=== PATIENT | male | born 1975 | race African-American/Black ===

== ENCOUNTER 2025-07-03 12:06 | Emergency (ER) | payer OTHER ==
[~2025-07-03] VITALS: Ht 162.6 cm; Wt 81.0 kg
[2025-07-03 12:23] VITALS: TEMP 98.1
[2025-07-03 14:34] LABS: APPEARANCE,URINE CLEAR (CLEAR); GLUCOSE, URINE (UA) NEGATIVE (NEGATIVE); LEUKOCYTE ESTERASE ,URINE NEGATIVE (NEGATIVE); NITRATE,URINE NEGATIVE (NEGATIVE); OCCULT BLOOD,URINE NEGATIVE (NEGATIVE); PH,URINE DRUG SCREEN 5.5 (5.0-8.0); SPECIFIC GRAVITIY, URINE 1.005 (1.003-1.030)
[2025-07-03 14:36] LABS: PLATELET COUNT (AUTO) 194 K/uL (150-450); RED BLOOD CELL COUNT(AUTO) 3.99 MIL/uL (4.50-5.90); RED CELL DISTRIBUTION WIDTH 14.1 % (11.5-14.5); WHITE BLOOD COUNT (AUTO) 6.0 K/uL (4.5-11.0)
[2025-07-03 14:41] LABS: CALCIUM, TOTAL 9.1 mg/dL (8.8-10.5); CREATININE 0.84 mg/dL (0.60-1.30); GLOMERULAR FILTR. RATE CALC > 60 mL/min (>60); GLUCOSE,RANDOM 141 mg/dL (70-110); SODIUM SERUM 136 mmol/L (136-145); UREA NITROGEN, BLOOD 8 mg/dL (7-18)
[2025-07-03 14:43] LABS: ALCOHOL, URINE DRUG SCREEN NEGATIVE (NEGATIVE); AMPHET/METH SCREEN,URINE NEGATIVE (NEGATIVE); BARBITURATE SCREEN, URINE NEGATIVE (NEGATIVE); CANNABINOID SCREEN,URINE NEGATIVE (NEGATIVE); METHADONE SCREEN, URINE NEGATIVE (NEGATIVE)
[2025-07-03 14:48] LABS: TROPONIN I-HIGH SENSITIVITY 9 ng/L (<76)
[2025-07-03 14:57] LABS: COCAINE SCREEN,URINE NEGATIVE (NEGATIVE)
[2025-07-03 15:51] VITALS: BP 147/97; PULSE 79; RESP 18; O2SAT 100
[2025-07-03] MEDS ORDERED: IBUP-1554 PO (16:34)
[2025-07-03] MEDS ORDERED: ACET-66 PO (16:34)
== END 2025-07-03 17:16 | disposition home or self-care (01) ==
LOC: EMS 12:13
DX: G89.29 Other chronic pain (principal); M54.9 Dorsalgia, unspecified; R42 Dizziness and giddiness
CPT/HCPCS: 80048; 80307; 81003; 84484; 85025; 93005; 99284